=== PATIENT | female | born 1935 ===

== ENCOUNTER → 2022-10-01 07:36 | Outpatient (CLI) | payer MEDICARE, MEDICAID, SELFPAY ==
--- NOTE | 2022-10-01 | DI.ECHO.S_ITS ---
Version: 1 Study ID: [id number] [place] [address] Name: GAGANDEEP PRIETO Study Date: 10/01/2022, 8: 26 AM : 1935 BP: 150 / 88 mmHg Gender: Female Height: 63 in Age: 87 Years Weight: 140 lb BSA: 1.66 mA? Ordering: STEVENSON JOSUE Referring: ARACELI LUONG Clinician: Sylvia Mauricio Reason For Study: CARDIAC MURMUR History: Summary Statements Normal sinus rhythm. Normal LV size and wall thickness; normal wall motion and LV systolic function. EF is 55-60%. Stage I diastolic dysfunction. Normal chamber sizes. Aortic sclerosis without stenosis; mild associated aortic regurgitation. No prior study available for comparison. Procedure: A two-dimensional transthoracic echocardiogram with color flow and Doppler was performed. The study quality was technically adequate. There is no prior echocardiogram noted for this patient. The patient was in sinus rhythm with heart rates between 73-82 bpm during the exam. Left Ventricle: The ejection fraction is estimated to be 55-60%. Proximal septal thickening is noted. The left ventricle is normal in size. Right Ventricle: The right ventricular cavity is small. Atria: There is no Doppler evidence for an interatrial shunt. The left atrial size is normal. Right atrium not well visualized secondary to technical limitations. Mitral Valve: There is mild mitral regurgitation. The mitral valve leaflets appear mildly thickened, but open well. Aortic Valve: There is mild aortic regurgitation. There is no aortic valve stenosis. The aortic valve is mildly calcified. The aortic valve is trileaflet. The aortic valve opens well. Tricuspid Valve: There is mild tricuspid regurgitation. Right ventricular systolic pressure is estimated to be 20 mmHg plus the clinically estimated CVP which cannot be estimated on this exam. The tricuspid valve is normal in structure and function. Pulmonic Valve: There is a trace or physiologic amount of pulmonic regurgitation. The pulmonic valve is not well visualized. Great Vessels: The ascending aorta could not be visualized. The aortic root is normal size. The inferior vena cava was not well visualized. Pericardium/ Pleura: There is no pericardial effusion. There is no pleural effusion. 2D and M-Mode Measurements and Calculations LVIDd: 4.5 cm LVOT diam: 2.03 cm LVIDs: 3.0 cm Ao root diam: 3.3 cm IVSd: 0.64 cm Ao Arch Diam (Prox Trans): 2.36 cm LVPWd: 0.69 cm LV bradford. diameter/BSA (cm/m^2): 2.7 LV sys. 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 LA A2 area: 14.9 home health registered nurse? LA length (vol): 3.8 cm LA vol: 31.5 ml LA vol index: 18.9 ml/mA? Doppler Measurements and Calculations Ao V2 max: 130.4 cm/sec LVOT Max Kalen: 111.9 cm/sec Ao V2 mean: 99.2 cm/sec LV V1 max P.0 mmHg Ao V2 VTI: 25.5 cm LV V1 VTI: 22.3 cm Ao max P.8 mmHg SV(LVOT): 72.1 ml Ao mean P.2 mmHg JEREMY(I,D): 2.8 home health registered nurse? JEREMY(V,D): 2.8 home health registered nurse? JEREMY indexed to BSA (cm^2/m^2): 1.70 sev ratio: 0.88 MV E max kalen: 55.2 cm/sec MV dec time: 0.19 sec MV A max kalen: 95.9 cm/sec MV E/A: 0.58 Med Peak E' Kalen: 2.7 cm/sec Lat Peak E' Kalen: 5.4 cm/sec E/e' average: 15.3 TR max kalen: 222.4 cm/sec PA mean P.40 mmHg TR max P.8 mmHg PA V2 max: 79.4 cm/sec Electronically signed by: Corine Whyte M.D. 10/02/2022, 2: 37 AM
== END ==
PROVIDERS: Referring Provider Nurse Practitioner Family; Visit Provider Nurse Practitioner Family
DX: R01.1 Cardiac murmur, unspecified (principal); I08.3 Combined rheumatic disorders of mitral, aortic and tricuspid valves
CPT/HCPCS: 93306